=== PATIENT | male | born 1975 | race Caucasian/White ===

== ENCOUNTER 2024-09-05 09:16 | Day surgery (SDC) | payer BC, SELFPAY ==
[2024-09-03 17:19] VITALS: BMI 30.1
[2024-09-05 09:35] VITALS: BP 153/88; PULSE 89; RESP 18; TEMP 36.2; O2SAT 99
[2024-09-05 09:37] VITALS: BP 153/88; PULSE 89; RESP 18; TEMP 36.2; O2SAT 99
--- NOTE | 2024-09-05 09:59 | P.PNANES_ITS ---
[facility] Disclaimer: The information contained in this section may have been updated after the patient was seen, as this information can be updated by other users. Medical History (Updated 09/05/24 @ 09:34 by Ana Montelongo RN) History of gastroesophageal reflux (GERD) Surgical History No significant past surgical history Family History Father Cancer Mother Heart disease Social History Smoking Status: Never smoker alcohol intake: never substance use type: denies use current occupational status: employed Travel in the last 8 weeks?: None [facility] Anesthesia Checklist Patient Identification Patient Identification: Arm Band and Verbal (Name & ) Structural Data Admitted From: Home Planned Operative Procedure/s: colonoscopy Consent for Planned Operative Procedure(s) Verified: Yes Verified Documents: Surgical Consent NPO Status Verified Time NPO: 00:00 Additional verifications Anesthesia Reactions: No (Never had anesthesia) Airway Assessment Mallampati Score:: Class I C-Spine Mobility Assessed: Yes TMJ Mobility Assessed: Yes Dentition: Good Dentition Neurological Assessment Level of Consciousness: Awake, Alert and Appropriate Hx Seizures: No Numbness or tingling in extremities: No Anesthesia Plan Anesthesia Plan: Verified ASA Class: I Anesthesia Type: MAC
--- NOTE | 2024-09-05 11:04 | EXP.HP ---
History of Present Illness *Admission Date: 09/05/24 *Reason for visit:: Screening for colon cancer *History of present illness: Mr. Giron is a 49-year-old gentleman who is here for initial screening colonoscopy. The examination is deemed medically necessary for screening colonoscopy. The patient has been seen, interviewed and examined prior to the procedure by both myself and the anesthesia provider. [facility] Disclaimer: The information contained in this section may have been updated after the patient was seen, as this information can be updated by other users. Medical History (Updated 09/05/24 @ 11:15 by Rodolfo Porras II, MD) History of gastroesophageal reflux (GERD) Surgical History No significant past surgical history Family History Father Cancer Mother Heart disease Social History (Updated 09/05/24 @ 10:01 by Filiberto Mac CRNA) Smoking Status: Never smoker alcohol intake: never substance use type: denies use current occupational status: employed Travel in the last 8 weeks?: None Have you lived/traveled outside [place] in past 30 days?: No Contact w/someone who lives/traveled outside [place] past 30 days?: No Exposure to someone with infectious disease in past 14 days?: No Do you have a fever (greater than 100.4 F or 38 C)?: No Have you tested positive for COVID-19?: No Exposed to someone with COVID-19 in past 14 days?: No Do you have a sore throat?: No Do you have a cough?: No Do you have any weakness?: No Do you have any diarrhea?: No Are you experiencing any unusual bleeding?: No Do you have any muscle aches/pain?: No Do you have any abdominal pain?: No Are you experiencing loss of taste or smell?: No Review of Systems Review of Systems Review of systems (narrative): Negative *Cardiovascular Comments: Negative *Gastrointestinal Comments: Negative *Genitourinary Comments: Negative *Musculoskeletal Comments: Negative *Neurologic Comments: Negative Meds Home Medications and Allergies Home Medications ?Medication ?Instructions ?Recorded ?Confirmed ?Type fexofenadine 180 mg tablet 180 mg PO DAILY 09/03/24 09/05/24 History New Prescriptions to Start Prescriptions: Allergies Allergy/AdvReac Type Severity Reaction Status Date / Time Sulfa (Sulfonamide Allergy Redness of Verified 09/05/24 09:34 Antibiotics) Skin Exam Data for Last 24 hours Vital signs and Labs for Last 24 Hours: Temp Pulse Resp BP Pulse Ox O2 Del Method 97.1 F L 89 18 153/88 H 99 Room Air 09/05/24 09:37 09/05/24 09:37 09/05/24 09:37 09/05/24 09:37 09/05/24 09:37 09/05/24 09:37 I & O for Last 24 hours: Intake & Output 09/02/24 09/03/24 09/04/24 09/05/24 23:59 23:59 23:59 23:59 Weight 210 lb *Routine HEENT Exam Head: Present normocephalic Eye: Present EOMI and PERRL ENT: Present mucous membranes moist *Routine Neck Exam Neck: Present supple *Routine Respiratory Exam Respiratory: Present CTA bilaterally *Routine Cardiovascular Exam Cardiovascular: Present RRR *Routine Abdominal Exam Abdominal: Present soft and normoactive bowel sounds; Absent tenderness *Routine Rectal Exam Rectal:: deferred *Routine Genitalia Exam Genitalia:: deferred *Routine Extremities Exam Extremities: Absent cyanosis, clubbing or edema *Routine Skin Exam Skin: Present warm; Absent rash *Routine Neurological Exam Neurological: Present alert and oriented X3 Assessment and Plan *Assessment and plan (1) Screening for colon cancer: Status: Acute Category: Medical Code(s): Z12.11 - Encounter for screening for malignant neoplasm of colon Plan A/P: 1. Screening for colon cancer is the preprocedural diagnosis. The patient will be anesthetized/sedated using MAC sedation. The patient has been seen and examined. Cardiac and lung assessment prior to the examination is stable. Proceed with planned screening colonoscopy.
--- NOTE | 2024-09-05 11:15 | HMH.PROCNOTE ---
[facility] Procedure Note Date: 09/05/24 Time: 11:28 Procedure Note:: Colonoscopy Procedure Report: Colonoscopy snare cautery, Endo Clip placement and cold snare polypectomy Endoscopist: Rodolfo Porras II, MD Referring physician: YUNIOR Cook Date of Procedure: September 05, 2024 Equipment: Olympus 190 variable stiffness pediatric colonoscope Sedation: MAC sedation Indication: Mr. Giron is a 49-year-old gentleman who is here for initial screening colonoscopy. He reports no abdominal pain, weight loss, change in his bowel habits or rectal bleeding. He reports no family history of colon cancer. In April, he did have food poisoning with some bloody diarrhea after eating cheese cubes and pepperoni. This completely resolved. Procedure: Prior to the procedure, a history and physical exam was performed, and patient's medications and allergies were reviewed. The risks, benefits and alternatives of the sedation and procedure were discussed with the patient. All questions were answered and informed consent was obtained. The patient was brought to the procedure room. Patient identification and proposed procedure were verified by the physician and the nurse. The patient was placed in a left lateral decubitus position and the scope was passed under direct vision. Throughout the procedure, the patient's blood pressure, pulse, and oxygen saturations were monitored continuously. The colonoscopy was accomplished without difficulty. The patient tolerated the procedure well. Findings: On digital rectal examination there was normal rectal tone. There were no external hemorrhoids. The colonoscope was introduced through the anal canal to the rectum and advanced to the cecum. The ileocecal valve and appendiceal orifice were identified. The scope was advanced a short distance into the ileum which appeared grossly normal. The scope was then withdrawn into the colon. The cecum, ascending, transverse and descending colon were grossly normal. Within the sigmoid colon at 25 cm from the anal verge was a larger 14 to 15 mm pedunculated polyp that was removed via snare cautery. The polyp stalk was closed with a single Endo Clip to provide hemostasis. There was another 5 mm polyp in the rectum removed via cold snare polypectomy. Upon retroflexion within the rectum there were grade 2 internal hemorrhoids. The preparation was excellent throughout with Ralston Preparation Score of 9. The cecal time was 12 minutes. Impression: 1. Sigmoid 14 to 15 mm pedunculated colon polyp 2. Rectal 5 mm polyp 3. Grade 2 internal hemorrhoids Plan: I will follow-up the polyp histology and recommend repeat surveillance colonoscopy in 3 to 5 years. I would recommend psyllium bulking fiber supplementation on a maintenance basis.
[2024-09-05 11:30] VITALS: BP 120/80; PULSE 101; RESP 18; TEMP 36.7; O2SAT 95
[2024-09-05 11:40] VITALS: BP 118/73; PULSE 85; RESP 18; TEMP 36.7; O2SAT 95
[2024-09-05 11:50] VITALS: BP 116/73; PULSE 90; RESP 18; TEMP 36.7; O2SAT 98
[2024-09-05 12:00] VITALS: BP 120/64; PULSE 93; RESP 16; TEMP 36.7; O2SAT 98
== END 2024-09-05 12:00 | disposition home or self-care (01) ==
PROVIDERS: PCP Nurse Practitioner Family; Visit Provider Internal Medicine Gastroenterology
PROC: 0DJD8ZZ Inspection of Lower Intestinal Tract, Via Natural or Artificial Opening Endoscopic (ICD-10-PCS; CPT 45378; principal; 2024-09-05 11:00)
DX: Z12.11 Encounter for screening for malignant neoplasm of colon (principal); D12.8 Benign neoplasm of rectum; D12.5 Benign neoplasm of sigmoid colon; K64.1 Second degree hemorrhoids; K21.9 Gastro-esophageal reflux disease without esophagitis; Z88.2 Allergy status to sulfonamides
CPT/HCPCS: 45385; J2003; J2704